=== PATIENT | female | born 1955 | race Caucasian/White ===

== ENCOUNTER 2022-09-21 22:43 | Emergency (ER) | payer MEDICARE ==
[~2022-09-21] VITALS: Ht 154.9 cm; Wt 92.0 kg
[2022-09-21 23:40] VITALS: BP 190/122
[2022-09-21 23:45] VITALS: BP 162/114
[2022-09-21 23:59] LABS: BASO% 0.1 % (0-3); EOS% 2.5 % (0-8); HEMOGLOBIN 14.7 g/dl (12.0-16.0); IMMATURE GRANULOCYTES 0.5 % (0.0-5.0); MEAN CELL VOLUME 82.9 fL CALC (80.0-100.0); MEAN CORPUSCULAR HGB 27.1 pG CALC (26.0-32.0); MEAN CORPUSCULAR HGB CONC 32.7 g/dL CAL (32.0-36.0); MONO% 7.5 % (2-13); NEUT# 9.54 thou/uL (2.00-7.15); NEUT% 69.4 % (42-76); RED BLOOD COUNT 5.43 mill/uL (4.20-5.60)
[2022-09-22] VITALS (7 sets, daily range): BP systolic 131–164; BP diastolic 81–112
[2022-09-22 00:01] LABS: URINE BILIRUBIN - DIPSTICK NEGATIVE (NEGATIVE); URINE BLOOD DIPSTICK NEGATIVE (NEGATIVE); URINE COLOR YELLOW; URINE GLUCOSE - DIPSTICK NEGATIVE (NEGATIVE); URINE KETONE NEGATIVE (NEGATIVE); URINE LEUK ESTERASE NEGATIVE (NEGATIVE); URINE NITRITE - DIPSTICK NEGATIVE (Negative); URINE PROTEIN - DIPSTICK NEGATIVE (NEG-TRACE); URINE SPECIFIC GRAVITY >=1.030; URINE UROBILINOGEN - DIPSTICK 0.2 E.U./dL (0.2)
[2022-09-22 00:18] LABS: ALBUMIN 4.3 g/dL (3.2-5.0); ALKALINE PHOSPHATASE 94 u/l (38-126); ANION GAP 13 (6-22 (CALC)); BILIRUBIN, TOTAL 0.4 mg/dL (0.0-1.4); BUN 22 mg/dL (8-23); BUN/CREATININE RATIO 23 (12-20 (CALC)); CARBON DIOXIDE 29 mmol/l (22-30); CHLORIDE 105 mmol/l (95-108); CREATININE 0.9 mg/dL (0.5-1.0); GFR FOR AFR.AMER. > 60 ML/MIN (>=60 (CALC)); GFR OTHER RACES > 60 ML/MIN (>=60 (CALC)); POTASSIUM 4.9 mmol/l (3.5-5.1); SGOT/AST 30 u/l (9-36); SODIUM 141 mmol/l (137-146); TOTAL PROTEIN 7.6 g/dL (6.3-8.2)
[2022-09-22] MEDS ORDERED: ASPIRIN81 MG PO (00:28)
[2022-09-22] MEDS ORDERED: PLAVIX75 MG PO (00:28)
[2022-09-22] MEDS ORDERED: EPLERENONE25 MG PO (00:29)
[2022-09-22] MEDS ORDERED: EFFEXOR XR37.5 MG PO (00:29)
[2022-09-22] MEDS ORDERED: METFORMIN HCL500 M2 PO (00:30)
[2022-09-22] MEDS ORDERED: VALSARTAN40 MG PO (00:31)
[2022-09-22] MEDS ORDERED: SINGULAIR10 MG PO (00:32)
[2022-09-22] MEDS ORDERED: LIPITOR20 M1 PO (00:32)
[2022-09-22] MEDS ORDERED: ORPHENADRINE100 MG PO (02:08)
[2022-09-22] MEDS ORDERED: ROBITUSSIN AC10 ML PO (02:08)
[2022-09-22] MEDS ORDERED: NAPROXEN375 MG PO (02:08)
== END 2022-09-22 03:08 | disposition home or self-care (01) ==
LOC: ED 22:43
PROVIDERS: Family Medicine
DX: S39.012A Strain of muscle, fascia and tendon of lower back, initial encounter (principal); I10 Essential (primary) hypertension; E11.9 Type 2 diabetes mellitus without complications; X58.XXXA Exposure to other specified factors, initial encounter; Z79.84 Long term (current) use of oral hypoglycemic drugs